=== PATIENT | female | born 1965 | race Caucasian/White ===

== ENCOUNTER 2019-08-15 07:48 | Outpatient (CLI) | payer OTHER, SELFPAY ==
--- NOTE | 2019-08-15 07:52 | MM_ITS ---
WS: [id number] LEFT DIGITAL MAMMOGRAPHY WITH CAD CLINICAL INFORMATION: BREAST PAIN HISTORY: Left breast soreness COMPARISON: January 08, 2019 TECHNIQUE: 5 views of the left breast were obtained. FINDINGS: Scattered fibroglandular densities of the left breast. Stable intramammary lymph node inner left [address]. No definite mammographic abnormalities in the upper outer left breast. Ultrasound is pending. ULTRASOUND BREAST LEFT TECHNIQUE: Ultrasound left breast focused area of concern. CLINICAL INFORMATION: BREAST PAIN COMPARISON: None. FINDINGS: Left breast ultrasound performed 12 to 6:00 position. A few hyperechoic Lesions in the superficial breast tissues the largest measuring 1.3 x 1.1 x 1.1 CCM. 2 or 3 addition al smaller similar-appearing lesions. Findings are probably benign and likely represents lipomas or f ibroadenolipoma. MM/[id number] IMPRESSION: Recommend 6 month follow-up left diagnostic mammography and ultrasound BI-RADS: 3-Probably Benign FOLLOW UP: 6 Month Follow-up
== END 2019-08-15 07:49 | disposition home or self-care (01) ==
LOC: RADSHAW 07:51
PROVIDERS: PCP Family Medicine; Visit Provider Family Medicine
DX: N64.4 Mastodynia (principal); N64.89 Other specified disorders of breast
CPT/HCPCS: 76642; 77065

== ENCOUNTER 2019-12-17 07:45 | Outpatient (CLI) | payer OTHER, SELFPAY ==
--- NOTE | 2019-12-17 07:52 | ECG_ITS ---
[facility] Test Date: 2019-12-17 Pat Name: Payal Estrada Department: Room: Gender: Female Catering Associate: : 1965 Requested By: Kartik Goldman Order Number: [id number] Matteo MD: Maru Marin M.D. Interpretive Statements NAME OF STUDY: TREADMILL STRESS TEST INDICATION: Dyspnea on exertion Baseline blood pressure of 136/103 mm Hg, heart rate 80 beats per minute and oxygen saturation of 96%. EKG showed normal sinus rhythm, normal axis with normal ST-Ts. The patient exercised for 7 minutes 35 seconds on a standard Christofer protocol. Patient attained a maximum heart rate of 167 beats per minute(101% of the maximum predicted heart rate) with a blood pressure at the peak exercise of 264/119 mm Hg. The EKG at the peak exercise revealed sinus tachycardia with half to 1 mm horizontal to upsloping ST depression in inferolateral leads that are not diagnostic of ischemia. Patient did not have any chest pain or any significant arrhythmis with the exercise. During the recovery phase, there were no new changes. Blood pressure at the end of the recovery phase was 164/102 mm Hg with a heart rate of 77 beats per minute and oxygen saturation of 95%. CONCLUSION: 1. Normal EKG response to treadmill exercise. 2. No exercise-induced chest pain or cardiac arrhythmia. 3. Excellent exercise tolerance, attained a maximum of 10.2 METs. Maximum VO2 of 35.7 mL/kg/min. 4. Baseline hypertension with hypertensive response to exercise. Electronically Signed On 12-18-2019 18:04:59 CDT by Maru Marin M.D. [id number]
[2019-12-17 07:55] VITALS: BMI 29.7
[2019-12-17 08:36] VITALS: BP 164/102; PULSE 79
== END 2019-12-17 07:46 | disposition home or self-care (01) ==
LOC: CDL 07:49
PROVIDERS: PCP Family Medicine; Visit Provider Family Medicine
DX: R06.00 Dyspnea, unspecified (principal); I10 Essential (primary) hypertension
CPT/HCPCS: 93017

== ENCOUNTER 2020-01-16 08:14 | Outpatient (CLI) | payer OTHER, SELFPAY ==
--- NOTE | 2020-01-16 08:23 | MM_ITS ---
WS: [id number] Bilateral screening digital mammogram, 01/16/2020 Clinical Data: SCREENING Comparison: 08/15/2019, 01/08/2019, 01/14/2017, 12/21/2016, 11/20/2015, 08/29/2014, 06/15/2013, 05/02/2012, 03/30/2011, 02/27/2010, 01/28/2009, 06/30/2007. Findings: The breast parenchymal pattern shows fibroglandular tissue No spiculated masses or clustered calcific ations are seen. There are no secondary signs of carcinoma. MM/[id number] Impression: 1. Negative bilateral mammogram unchanged. 2. Recommend annual screening mammograms. BIRADS: 1-Negative FOLLOW UP: 1 Year Follow-up The CAD template checker was used.
== END 2020-01-16 08:15 | disposition home or self-care (01) ==
LOC: RADSHAW 08:19
PROVIDERS: PCP Family Medicine; Visit Provider Family Medicine
DX: Z12.31 Encounter for screening mammogram for malignant neoplasm of breast (principal)
CPT/HCPCS: 77067

== ENCOUNTER 2020-02-18 12:52 | Outpatient (CLI) | payer OTHER, SELFPAY ==
--- NOTE | 2020-02-18 13:11 | US_ITS ---
WS: [id number] ULTRASOUND BREAST LEFT TECHNIQUE: Ultrasound left breast focused area of concern. CLINICAL INFORMATION: BREAST PAIN COMPARISON: Ultrasound August 15, 2019 and mammogram January 16, 2020 FINDINGS: Ultrasound left breast 10:00 and 3:00 positions in the area of pain. Hypoechoic cyst or prominent tuan t at the 10:00 position with a single septation measuring 6.5 x 7.1 mm with a small amount of interna l debris. This is probably benign and recommend 6 month follow-up ultrasound. Additional subcutaneous echogenic lesions at the 10:00 position and 3:00 position consistent with in cidental lipomas. Largest at the 3:00 position measuring 1.9 x 0.8 x 1.6 cm. These are stable compare d to previous and have a benign appearance. IMPRESSION: BI-RADS 3 probably benign Recommend 6 month follow-up ultrasound left breast ultrasound with attention to the 10:00 lesion desc ribed above. BI-RADS 3 -- probably benign, 6-month follow-up
== END 2020-02-18 12:53 | disposition home or self-care (01) ==
LOC: RADSHAW 12:54
PROVIDERS: PCP Family Medicine; Visit Provider Family Medicine
DX: N64.4 Mastodynia (principal); N64.89 Other specified disorders of breast
CPT/HCPCS: 76642

== ENCOUNTER 2021-02-12 15:11 | Outpatient (CLI) | payer OTHER, SELFPAY ==
--- NOTE | 2021-02-12 15:15 | MM_ITS ---
WS: [id number] BILATERAL SCREENING DIGITAL MAMMOGRAM WITH CAD HISTORY: SCREENING COMPARISON: 01/16/2020 and 08/15/2019 and 01/08/2019 Bilateral CC and MLO views submitted. Computer aided detection analyzed. Breast composition: There are scattered areas of fibroglandular density. No suspicious masses, microc alcifications or architectural distortion. Stable 7 mm nodule LEFT breast near 9:00. MM/[id number] IMPRESSION: BI-RADS: 2-Benign FOLLOW UP: 1 Year Follow-up
== END 2021-02-12 15:12 | disposition home or self-care (01) ==
LOC: RADSHAW 15:12
PROVIDERS: PCP Family Medicine; Visit Provider Family Medicine
DX: Z12.31 Encounter for screening mammogram for malignant neoplasm of breast (principal)
CPT/HCPCS: 77067

== ENCOUNTER → 2021-09-02 14:07 | Outpatient (BNVA) | payer OTHER, SELFPAY | PROVIDERS: PCP Family Medicine; Visit Provider Nurse Practitioner Family | DX: R73.03 Prediabetes (principal); E88.81 Metabolic syndrome and other insulin resistance; Z13.1 Encounter for screening for diabetes mellitus; E03.9 Hypothyroidism, unspecified | CPT/HCPCS: 80053; 83036; 84439; 84443 ==

== ENCOUNTER 2022-02-26 14:52 | Outpatient (CLI) | payer OTHER, SELFPAY ==
--- NOTE | 2022-02-26 15:13 | MM_ITS ---
WS: [id number] BILATERAL 3D TOMOSYNTHESIS DIGITAL SCREENING MAMMOGRAPHY WITH CAD CLINICAL INFORMATION: SCREENING HISTORY: Screening mammogram. No current complaints. COMPARISON: February 12, 2021 TECHNIQUE: Bilateral CC and MLO views. FINDINGS: Scattered fibroglandular densities bilaterally. No suspicious focal mass, asymmetry, calcifications, or architectural distortion. No evidence of malignancy. Stable 7 mm nodule or intramammary lymph node LEFT breast. A few incidental punctate calcifications. MM/[place] [id number] IMPRESSION: BI-RADS: 2-Benign FOLLOW UP: 1 Month Follow-up Recommend return to annual screening mammography.
== END 2022-02-26 14:53 | disposition home or self-care (01) ==
LOC: RAD 14:54
PROVIDERS: PCP Family Medicine; Visit Provider Family Medicine
DX: Z12.31 Encounter for screening mammogram for malignant neoplasm of breast (principal)
CPT/HCPCS: 77063; 77067

== ENCOUNTER → 2022-08-08 17:42 | Outpatient (BNVA) | payer OTHER, SELFPAY | PROVIDERS: PCP Family Medicine; Visit Provider Emergency Medicine | DX: S69.91XA Unspecified injury of right wrist, hand and finger(s), initial encounter (principal); W19.XXXA Unspecified fall, initial encounter | CPT/HCPCS: 73110 ==

== ENCOUNTER → 2022-10-13 10:37 | Outpatient (BNVA) | payer OTHER, SELFPAY | PROVIDERS: PCP Family Medicine; Visit Provider Family Medicine | DX: E88.81 Metabolic syndrome and other insulin resistance (principal); R73.03 Prediabetes | CPT/HCPCS: 80053; 80061; 83036; 84443; 85025 ==

== ENCOUNTER 2022-12-20 07:27 | Emergency (ER) | payer OTHER, SELFPAY ==
[2022-12-20 07:37] VITALS: BP 139/69; PULSE 64; RESP 16; TEMP 36.6; O2SAT 100; BMI 22.4
--- NOTE | 2022-12-20 08:14 | XRR_ITS ---
PROCEDURE INFORMATION: Exam: XR Lumbosacral Spine Exam date and time: 12/20/2022 8:30 AM Age: 57 years old Clinical indication: Pain; Lumbago with sciatica; Right; Additional info: Low back pain sciatica TECHNIQUE: Imaging protocol: Radiologic exam of the lumbosacral spine. Views: 2 or 3 views. COMPARISON: No relevant prior studies available. FINDINGS: Bones/joints: No acute fracture. Slight dextroconvex curvature. No spondylolisthesis. Moderate intervertebral disc space narrowing and osteophyte formation at L4-L5 and L5-S1. Mild intervertebral disc space narrowing and osteophyte formation at L3-L4. Preserved intervertebral disc spaces with mild osteophyte formation at L1-L2 and L2-L3. Lower lumbar spine facet arthrosis. Mild sacroiliac joint degenerative change. Soft tissues: Unremarkable. XR/XR lumbar spine 2-3V* [id number] IMPRESSION: 1. No acute findings. 2. Multilevel lumbar spine degenerative changes greatest from L4-S1.
--- NOTE | 2022-12-20 08:14 | W.ED.EXTPRO ---
HPI - Extremity Problem General: Chief complaint: Extremity Problem,Nontraumatic Stated complaint: right lower leg pain Time Seen by Provider: 12/20/22 07:39 History of Present Illness: 57-year-old female presents emergency department complaints of low back pain and right calf pain. 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 She states she has recently been seen and currently is receiving stem cell injections as she does have difficulties with her shoulders and a previous left gastrocnemius tear. She states her current pain is a 4 out of 10 intermittent and aching and worse if she stands. She states she is able to flex and extend her right foot without difficulty. She denies numbness to the extremity. Review of Systems General: Reports: 10 or more systems reviewed and unremarkable except in HPI and below Musc: Reports: back pain and extremity pain [facility] ED PFSH: Medical History Hypertension Surgical History History of appendectomy History of hysterectomy History of oophorectomy Family History Other CAD (coronary artery disease) Diabetes Hypertension Lung disease Denies family history of Dementia Chronic kidney disease (CKD) Cancer Stroke Social History Smoking and tobacco/nicotine status: never used tobacco/nicotine Female Reproductive History: Spontaneous abortions: No Physical Exam Const: COMMON NORMALS: no acute distress, patient oriented x3 and alert HENMT: COMMON NORMALS: normocephalic, atraumatic and moist oral mucous membranes HEAD & SCALP: normocephalic and atraumatic Eye: COMMON NORMALS: Equal, round and reactive pupils present and EOMs intact bilaterally PUPIL: Yes Equal, round and reactive pupils present Neck/C-Spine: COMMON NORMALS: full ROM, supple, no meningeal signs and no JVD Chest: COMMONS NORMALS: normal inspection of the chest Resp: COMMON NORMALS: normal respiratory effort, No use of accessory muscles and clear to auscultation bilaterally AUSCULTATION: clear to auscultation bilaterally Cardio: COMMON NORMALS: no JVD, regular rate, regular rhythm, S1 normal heart sound present, S2 normal heart sound present and Peripheral pulses 2+ throughout RATE: regular rate RHYTHM: regular rhythm HEART SOUNDS: S1 normal heart sound present and S2 normal heart sound present PERIPHERAL PULSES: Peripheral pulses 2+ throughout GI: COMMON NORMALS: Normal to inspection, nondistended, normoactive bowel sounds present, Soft to palpation and non-tender PALPATION: Yes Soft to palpation Extremity: COMMON NORMALS: normal to inspection, full ROM and capillary refill normal; negative for no calf tenderness (Dorsal aspect, distal to the popliteal space there is point tenderness to p) Neuro: COMMON NORMALS: patient oriented x3, moves all extremities, no focal motor deficits, no sensory deficits noted, deep tendon reflexes 2+ bilaterally and gait normal SENSORIUM/ORIENTATION: Yes alert MENINGEAL SIGNS: Yes no meningeal signs Psych: COMMON NORMALS: mental status grossly normal, Normal thought process present, cooperative, normal affect and speech normal SPEECH: Yes normal speech THOUGHT PROCESS: Normal thought process present Skin: COMMON NORMALS: no rashes or lesions noted GENERAL SKIN EXAM: no rashes or lesions noted Course Vital Signs: Vital signs: Vital Signs Temperature 97.9 F 12/20/22 07:37 Pulse Rate 64 12/20/22 09:52 Respiratory Rate 16 12/20/22 09:52 Blood Pressure 139/69 12/20/22 09:52 Pulse Oximetry 100 12/20/22 09:52 Oxygen Delivery Me thod Room Air 12/20/22 07:37 MDM - Extremity (Nontraumatic) Medical Decision Making Physical exam completed and documented radiographic examination obtained no acute findings I suspect this is most likely related to her sciatica. I did provide her intramuscular pain medication she states improved control of her pain. I did offer her steroids for injection and she states that at present she would not like to have any steroids due to her stem cell injections for her shoulder. I did discuss follow-up with the patient and advised her I would discharge her home with a prescription for naproxen and 2-day work note. Advised her it is important to follow-up with her primary care provider and her orthopedic surgeon to discuss additional evaluation treatment and care. Medical Records I reviewed the patient's medical records. Lab Data Radiology Impressions Lumbar Spine X-Ray 12/20/22 08:14 IMPRESSION: 1. No acute findings. 2. Multilevel lumbar spine degenerative changes greatest from L4-S1. All radiology interpretation(s) finalized by discharge Discharge Plan Discharge Patient Disposition: Home Clinical Impression: Sciatica of right side, Low back pain Condition: Stable Prescriptions: New Naprosyn 500 mg tablet 500 mg PO BID Qty: 30 0RF No Action folic acid 1 mg tablet 1 mg PO DAILY atorvastatin [Lipitor] 10 mg tablet 10 mg PO DAILY Mounjaro 5 mg/0.5 mL pen injector See Rx Instructions .ROUTE .COMPLEX Qty: 2 3RF Dose Instruction: inject 5mg(0.5ml) SUBCUTANEOUSLY WEEKLY Rx Instructions: inject 5mg(0.5ml) SUBCUTANEOUSLY WEEKLY valacyclovir [Valtrex] 500 mg tablet 500 mg PO DAILY metoprolol ta-hydrochlorothiaz 50-25 mg tablet 1 tab PO DAILY zinc gluconate 30 mg tablet 30 mg PO DAILY magnesium 250 mg tablet 1,000 mg PO DAILY estradiol 1 mg tablet 1 mg PO DAILY Qty: 30 0RF Trintellix 10 mg tablet See Rx Instructions .ROUTE .COMPLEX Qty: 90 3RF Dose Instruction: TAKE 1 TABLET BY MOUTH EVERY DAY Rx Instructions: TAKE 1 TABLET BY MOUTH EVERY DAY Discharge Orders: Discharge ED (Routine); Ordered 12/20/22 Ordered By: Slava Ellison Referrals: Kartik Flores MD [Primary Care Provider] - Discharge Diet: Advance as tolerated Patient Instructions: Sciatica (ED) Activity Restrictions/Additional Instructions: OFF Work for 2 days. May return on 12/22/2022. 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
[2022-12-20] MEDS: ketorolac 60 mg/2 mL INJ IM (08:28)
[2022-12-20 09:52] VITALS: BP 139/69; PULSE 64; RESP 16; O2SAT 100
== END 2022-12-20 09:53 | disposition home or self-care (01) ==
PROVIDERS: Emergency Provider Internal Medicine; PCP Family Medicine
DX: M54.41 Lumbago with sciatica, right side (principal)
CPT/HCPCS: 72100; 96372; 99284; J1885

== ENCOUNTER 2023-03-03 08:15 | Outpatient (CLI) | payer OTHER, SELFPAY ==
--- NOTE | 2023-03-03 08:19 | MM_ITS ---
WS: [id number] BILATERAL 3D TOMOSYNTHESIS DIGITAL SCREENING MAMMOGRAPHY WITH CAD CLINICAL INFORMATION: SCREENING HISTORY: Screening mammogram. No current complaints. COMPARISON: 2021 TECHNIQUE: Bilateral CC and MLO views. FINDINGS: Scattered fibroglandular densities bilaterally. No suspicious focal mass, asymmetry, calcifications, or architectural distortion. No evidence of malignancy. A few tiny incidental punctate calcifications . IMPRESSION: MM/[place] [id number] BI-RADS: 2-Benign FOLLOW UP: 1 Year Follow-up Recommend return to annual screening mammography.
== END 2023-03-03 08:16 | disposition home or self-care (01) ==
LOC: RAD 08:15
PROVIDERS: PCP Family Medicine; Visit Provider Family Medicine
DX: Z12.31 Encounter for screening mammogram for malignant neoplasm of breast (principal)
CPT/HCPCS: 77063; 77067

== ENCOUNTER → 2023-12-06 09:30 | Outpatient (BNVA) | payer OTHER, SELFPAY | PROVIDERS: PCP Family Medicine; Visit Provider Family Medicine | DX: R73.03 Prediabetes (principal) | CPT/HCPCS: 80053; 80061 ==

== ENCOUNTER 2024-03-05 07:41 | Outpatient (CLI) | payer OTHER, SELFPAY ==
--- NOTE | 2024-03-05 | MM_ITS ---
WS: [id number] BILATERAL SCREENING DIGITAL TOMOSYNTHESIS MAMMOGRAM WITH CAD HISTORY: ANNUAL SCREENING COMPARISON: 03/03/2023, 02/26/2022 Bilateral CC and MLO views with tomosynthesis and synthetic mammography submitted. Computer aided det ection analyzed. Breast composition: There are scattered areas of fibroglandular density. No suspicious masses, microc alcifications or architectural distortion. There are a few benign scattered calcifications. MM/MM scr BI tomosynthesis [id number] IMPRESSION: BI-RADS: 2 - Benign. FOLLOW UP: 1 Year Follow-up
== END 2024-03-05 07:42 | disposition home or self-care (01) ==
LOC: RAD 07:42
PROVIDERS: PCP Family Medicine; Visit Provider Family Medicine
DX: Z12.31 Encounter for screening mammogram for malignant neoplasm of breast (principal); R92.323 Mammographic fibroglandular density, bilateral breasts; R92.1 Mammographic calcification found on diagnostic imaging of breast
CPT/HCPCS: 77063; 77067

== ENCOUNTER 2025-03-06 12:57 | Outpatient (CLI) | payer OTHER, SELFPAY ==
--- NOTE | 2025-03-06 13:04 | MM_ITS ---
WS: [id number] BILATERAL 3D TOMOSYNTHESIS DIGITAL SCREENING MAMMOGRAPHY WITH CAD CLINICAL INFORMATION: ANNUAL SCREEN HISTORY: Screening mammogram. No current complaints. COMPARISON: 2023 TECHNIQUE: Bilateral CC and MLO views. FINDINGS: Scattered fibroglandular densities bilaterally. No suspicious focal mass, asymmetry, calcifications, or architectural distortion. No evidence of malignancy. Incidental punctate calcifications RIGHT breast MM/MM scr [place] tomosynthesis [id number] IMPRESSION: DENSITY: There are scattered areas of fibroglandular density. BI-RADS: 2 - Benign. FOLLOW UP: 1 Year Follow-up Recommend return to annual screening mammography.
== END 2025-03-06 12:58 | disposition home or self-care (01) ==
LOC: RAD 12:58
PROVIDERS: PCP Family Medicine; Visit Provider Family Medicine
DX: Z12.31 Encounter for screening mammogram for malignant neoplasm of breast (principal); R92.323 Mammographic fibroglandular density, bilateral breasts; R92.1 Mammographic calcification found on diagnostic imaging of breast
CPT/HCPCS: 77063; 77067